=== PATIENT | female | born 1975 | race Caucasian/White ===

== ENCOUNTER 2025-02-28 08:59 | Emergency (ER) | payer BC, SELFPAY ==
[2025-02-28 09:07] VITALS: BP 140/87
--- NOTE | 2025-02-28 09:21 | ED.GENMED ---
History of Present Illness
General
Chief Complaint: Fall
Time Seen by Provider: 02/28/25 09:09
History of Present Illness
History of Present Illness:
See MDM
Phy Exam
Physical Exam
Physical Exam:
See MDM
Course
Orders/Labs/Results
Orders:
Orders
02/28/25 09:00
Shoulder, Left, Trauma CR [CR Shoulder, Trauma - Left] Urgent
Comment:
Reason For Exam: pain
02/28/25 09:17
Oxycodone [Roxicodone] 5 mg PO NOW STA
02/28/25 09:18
Shoulder Immobilizer Left- Tx ONCE
Sling Left-Treatment ONCE
Vital Signs
Initial and Last Documented VS:
Initial Vital Signs
Temp Pulse Resp BP Pulse Ox
98.4 F 74 16 140/87 99
02/28/25 09:07 02/28/25 09:07 02/28/25 09:07 02/28/25 09:07 02/28/25 09:07
Last Documented Vital Signs
Temp Pulse Resp BP Pulse Ox
98.4 F 74 16 140/87 99
02/28/25 09:07 02/28/25 09:07 02/28/25 09:07 02/28/25 09:07 02/28/25 09:07
MDM/Problems Addressed
Differential Diagnosis Includes:
Note:
CHIEF COMPLAINT(S)
Clavicle fracture
HISTORY OF PRESENT ILLNESS
The patient is a 49-year-old female who presented with a new fracture of the left clavicle after an accidental fall in her driveway. She describes no loss of consciousness or head trauma. She is right-hand dominant. She does not report any numbness
or tingling.
MEDICATIONS
The patient regularly uses ibuprofen for pain management.
PHYSICAL EXAM
General: Alert, no acute distress.
Skin: Warm, dry.
Head: Normocephalic, atraumatic
Neck: Appears supple, trachea midline.
Eyes, Ears, Nose, Mouth, and Throat: Oral mucosa moist.
Cardiovascular: No signs of cyanosis
Respiratory: Respirations are non-labored.
Abdomen: Non-distended
Musculoskeletal: Mild swelling and tenderness to left lateral clavicle. Decreased range of motion to left shoulder secondary to pain. Distal extremity neurovascular intact
Neurological: No focal neurological deficit observed.
Psychiatric: Cooperative, appropriate mood and affect.
PROBLEM LIST
Acute: Left clavicle fracture
PLAN
1. Immobilization: Place the patient in a sling for comfort and support.
2. Pain Management: Prescribe oxycodone for pain management, especially to aid with sleep. After the acute pain phase, advise the continuation of ibuprofen as needed.
3. Sleeping Recommendations: Advise the patient to use extra pillows to sleep in a more upright position to prevent exacerbation of shoulder pain.
4. Referral: Provide a referral to an flight service specialist for follow-up regarding the clavicle fracture.
5. Follow-up: Schedule follow-up with a shoulder specialist.
DIFFERENTIAL DIAGNOSIS
The Differential Diagnosis includes, in no particular order and is not limited to:
1. Clavicle fracture
2. AC joint sprain or separation
3. Rotator cuff injury
4. Subacromial impingement
5. Shoulder dislocation
6. Brachial plexus injury
7. Scapular fracture
8. Contusion of the shoulder region
9. Hemothorax secondary to trauma
10. Pectoralis muscle strain
Disposition:
SUMMARY OF ENCOUNTER
The patient presented to the emergency department following a fall that resulted in a left clavicle fracture. Management involved placement in a shoulder immobilizer to provide support and comfort, as well as pain management. Patient was educated on
pain control, immobilization, and follow-up care including a referral to an flight service specialist. The patient appeared well and was agreeable to a discharge for outpatient care.
DISPOSITION
Discharge
ASSESSMENT
The patient has sustained a left clavicle fracture due to a fall. There was no loss of consciousness, head trauma, or numbness/tingling reported, and the patient is right-hand dominant.
PLAN
1. Immobilization with a shoulder immobilizer to stabilize the fracture.
2. Pain management with prescribed medications and continuation of ibuprofen as needed after the acute pain diminishes.
3. Referral to an flight service specialist for further evaluation and management of the clavicle fracture.
4. Schedule follow-up with a shoulder specialist to monitor the healing process.
MEDICATION RECONCILIATION
- Oxycodone prescribed for acute pain management.
- Continue ibuprofen as needed for pain relief after acute pain phase.
MEDICAL DECISION MAKING
- Number and Complexity of Problems Addressed: Chronic conditions affecting care [none mentioned]. Differential diagnosis includes: clavicle fracture, AC joint sprain or separation, rotator cuff injury, subacromial impingement, shoulder dislocation,
brachial plexus injury, scapular fracture, contusion of the shoulder region, hemothorax secondary to trauma, pectoralis muscle strain.
Category 1:
- X-ray confirmed left clavicle fracture.
Category 3:
- Discussions included management of clavicle fracture with a potential orthopedic consultation for further care.
- Risk: Prescription medication was prescribed for acute pain management.
Diagnosis:
- Left clavicle fracture (S42.002A)
*Pulse Oximetry
SaO2: 99
Oxygen Mode of Delivery: Room air
Patient hypoxic: no
*Critical Care Note
Total Time (30-74mins, 75-104mins- exclusive of procedures): Not Applicable
ED Attending Note
-
Portions of this chart may have been created with voice recognition software.� Occasional wrong word or��sound alike� substitutions may have occurred due to the inherent limitations of voice recognition software.
Discharge Plan
Departure
Patient Disposition: Home (Routine Discharge)
Date of Disposition: 02/28/25
Time of Disposition: 09:21
Patient with high blood pressure during this ER visit?: No
Discharge Problem:
Fx clavicle, acrom end-closed
Instructions: Fractures - Clavicle (Adult)
Prescriptions:
New
oxycodone 5 mg tablet
5 mg PO Q8H PRN (Reason: Pain) Qty: 10 0RF
Referrals:
Catalino Turner MD [Active, Orthopedics]
Activity Restrictions/Additional Instructions:
Please return for any worsening symptoms.
You may return at any time if you have further concerns.
Please follow up with the orthopedist at the first available appointment, preferably this week.
You were given a prescription for narcotics. This will help especially at nighttime as you try to sleep. If you require this pain medicine, please take a daily [id number] stool softener to avoid constipation.
Thank you for choosing [facility].
Interventions
Interventions:
*Risk Screen - Suicide Last Done: 02/28/25 09:05
Discharge Date and Time
Print Language: SLOVENIAN
[2025-02-28] MEDS: ROXICODONE 5 MG PO (09:28)
[2025-02-28 09:35] VITALS: BMI 26.7
== END 2025-02-28 09:48 | disposition home or self-care (01) ==
LOC: EMR 08:59
PROVIDERS: EMERGENCY PHYSICIAN Student in an Organized Health Care Education/Training Program; FAMILY PHYSICIAN Internal Medicine
DX: S42.002A Fracture of unspecified part of left clavicle, initial encounter for closed fracture (principal); W19.XXXA Unspecified fall, initial encounter
CPT/HCPCS: 99283; 73030